=== PATIENT | male | born 1990 | race African-American/Black ===

== ENCOUNTER 2019-04-11 03:38 | Emergency (ER) | payer OTHER ==
[~2019-04-11] VITALS: Ht 198.1 cm; Wt 137.0 kg
[2019-04-11 03:50] VITALS: BP 148/92
[2019-04-11] MEDS ORDERED: DOXYCYCLINE 10100 M2 PO (03:59)
[2019-04-11 04:22] LABS: URINE BILIRUBIN NEGATIVE (Negative); URINE BLOOD NEGATIVE (Negative); URINE CLARITY CLEAR; URINE COLOR YELLOW; URINE GLUCOSE-RANDOM NEGATIVE (Negative); URINE KETONES NEGATIVE (Negative); URINE LEUKOCYTES-REFLEX NEGATIVE (Negative); URINE NITRITE-REFLEX NEGATIVE (Negative); URINE PROTEIN NEGATIVE (Negative); URINE SPECIFIC GRAVITY >= 1.030 (1.005-1.030); URINE UROBILINOGEN 0.2 E.U./dl (0.2-1.0)
== END 2019-04-11 04:27 | disposition home or self-care (01) ==
LOC: M.ERS 03:38
PROVIDERS: Emergency Medicine Emergency Medical Services
DX: N34.2 Other urethritis (principal)

== ENCOUNTER 2019-11-02 05:43 | Emergency (ER) | payer OTHER ==
[~2019-11-02] VITALS: Ht 203.2 cm; Wt 131.5 kg
[~2019-11-02 05:43] MED LIST: DOXYCYCLINE 10100 M2 PO
[2019-11-02] MEDS ORDERED: HYDROCODON-ACE1 EAC8 PO (06:44)
[2019-11-02 06:50] VITALS: BP 154/96
== END 2019-11-02 06:50 | disposition home or self-care (01) ==
LOC: M.ERS 05:43
DX: S60.131A Contusion of right middle finger with damage to nail, initial encounter (principal); Z88.0 Allergy status to penicillin; Z88.1 Allergy status to other antibiotic agents; W23.0XXA Caught, crushed, jammed, or pinched between moving objects, initial encounter; Y93.89 Activity, other specified; Y92.89 Other specified places as the place of occurrence of the external cause; Y99.8 Other external cause status

== ENCOUNTER 2020-03-20 16:33 | Emergency (ER) | payer OTHER ==
[~2020-03-20] VITALS: Ht 200.7 cm; Wt 131.1 kg
[~2020-03-20 16:33] MED LIST changes: +HYDROCODON-ACE1 EAC8 PO
[2020-03-20 16:43] VITALS: BP 157/77
[2020-03-20] MEDS ORDERED: FLEXERIL PO (17:09)
== END 2020-03-20 17:23 | disposition home or self-care (01) ==
LOC: M.ERS 16:33
DX: S39.012A Strain of muscle, fascia and tendon of lower back, initial encounter (principal); Z88.0 Allergy status to penicillin; Z88.1 Allergy status to other antibiotic agents; V49.9XXA Car occupant (driver) (passenger) injured in unspecified traffic accident, initial encounter; Y93.89 Activity, other specified; Y92.89 Other specified places as the place of occurrence of the external cause; Y99.8 Other external cause status